=== PATIENT | female | born 1930 | race Caucasian/White ===

== ENCOUNTER 2017-04-25 11:40 | Inpatient (IN) ==
[2017-04-25] MEDS ORDERED: 0.9 % Sodium Chloride 1,000 ML IVC ONE (12:11)
[2017-04-25] MEDS ORDERED: Levofloxacin 750 MG/150 ML 750 MG/150 ML BAG IVPB ONE (12:11)
--- NOTE | 2017-04-25 12:59 | Emergency Department Note ---
Disposition Clinical Impression: Pneumonia Qualifiers: Pneumonia type: due to unspecified organism Laterality: right Lung location: lower lobe of lung Qualified Code(s): J18.1 - Lobar pneumonia, unspecified organism Urinary tract infection Qualifiers: Urinary tract infection type: site unspecified Hematuria presence: without hematuria Qualified Code(s): N39.0 - Urinary tract infection, site not specified Anemia Qualifiers: Anemia type: unspecified type Qualified Code(s): D64.9 - Anemia, unspecified Disposition: Admitted As Inpatient Condition: Good Time of Disposition: 17:01 General Adult HPI - General Chief complaint: ED Recheck/Abnormal Lab/Rx Stated complaint: Abnormal labs, abnormal chest xray Time Seen by Provider: 04/25/17 11:49 Source: patient, EMS Mode of arrival: EMS Limitations: age Nursing Notes Reviewed: Yes Vital Signs Reviewed: Yes - History of Present Illness HPI Narrative: Presents by EMS for evaluation of right lower lobe pneumonia. They are concerned about possible progression infection secondary to the patient's generalized malaise and weakness. No other concerns or issues noted at this time the patient denies chest pain shortness of breath headache vision changes nausea vomiting or diarrhea. Denies any palpitations or productive sputum. Onset (ago): day(s) Radiation: non-radiation Pain Scale: 6 Quality: aching Improves with: nothing Worsens with: nothing Associated symptoms: Reports: denies other symptoms Treatments Prior to Arrival: none - Related Data Home Medications Medication Instructions Recorded Confirmed Aspirin Enteric Coated [Aspirin EC] 81 mg PO QAM 04/25/17 04/25/17 Calcium Carbonate/Vitamin D3 1 each PO HS 04/25/17 04/25/17 [Calcium 500-Vit D3 200 Tablet] Carvedilol [Coreg] 6.25 mg PO BIDWM 04/25/17 04/25/17 HYDROcodone/Acet 5/325 mg [[place] 1 tab PO Q12H PRN 04/25/17 04/25/17 5-325 mg] Omeprazole [PriLOSEC] 20 mg PO QAM 04/25/17 04/25/17 Simvastatin [Zocor] 40 mg PO QAM 04/25/17 04/25/17 Venlafaxine XR (24 HR) [Effexor XR] 37.5 mg PO QAM 04/25/17 04/25/17 Warfarin [Coumadin] 4 mg PO 1700 04/25/17 04/25/17 hydrOXYzine pamoate [HydrOXYzine 25 mg PO DAILY PRN 04/25/17 04/25/17 Pamoate] Allergies Allergy/AdvReac Type Severity Reaction Status Date / Time sertraline [From Zoloft] AdvReac See Verified 04/25/17 16:35 Comments All systems ED: reviewed and negative except as stated. Review of Systems: As Per HPI Constitutional: Denies: fever, chills, weakness Cardiovascular: Denies: chest pain, palpitations, dyspnea on exertion, orthopnea , edema Respiratory: Reports: cough, dyspnea. Denies: wheezes, hemoptysis Gastrointestinal: Denies: abdominal pain, nausea, vomiting, diarrhea Genitourinary: Denies: dysuria, frequency Musculoskeletal: Denies: back pain, neck pain Neurological: Denies: headache Past Medical History - Past Medical History Attestation: Yes The following information was validated with the patient. Source: patient Medical history: Reports: atrial fibrillation, GERD, hyperlipidemia, hypertension Psychiatric history: Reports: depression - Social History Smoking Status: Never smoker Smokeless Tobacco Status: No Alcohol use: Reports: none Drug use: Reports: none Physical Exam - General Limitations: age General appearance: alert - Head Head exam: atraumatic, normocephalic, normal inspection - Neck Neck exam: Present: normal inspection, full ROM, trachea midline - Chest Chest inspection: Present: normal inspection, symmetric chest wall rise - Respiratory Respiratory exam: Absent: respiratory distress, wheezes, stridor, accessory muscle use - Cardiovascular Cardiovascular exam: Present: regular rate, normal rhythm, normal heart sounds - Abdominal Exam Abdominal exam: Present: soft, Non-Tender, normal bowel sounds. Absent: tenderness, distention, guarding, rebound, rigidity - Extremities Exam Extremities exam: Present: normal inspection, full ROM, normal capillary refill. Absent: tenderness - Back Exam Back exam: Present: normal inspection, full ROM. Absent: tenderness - Neurological Exam Neurological exam: Present: alert, oriented X3, CN II-XII intact, normal gait - Skin Skin exam: Present: warm, dry, intact, normal color Course Course Narrative: Patient seen and examined the time of arrival. See history of present illness. 86-year-old female presents to emergency room with complaints of generalized malaise, respiratory issues and diagnosis of pneumonia with abnormal labs from her nursing facility. Patient is currently in the facility for rehabilitation secondary to pain and generalized weakness. Family describes over the last several days persistently worsening weakness. They were concerned about possible pneumonia or other underlying etiology. Patient has had some increased work of breathing over the last several days. Patient does screening laboratory revealed completely including CBC chemistry and chest x-ray 2 views completed. EKG also collected as well as troponin and BNP. Urinalysis is pending at this time. Patient will most likely need admission for what is described as a possible pneumonia that is causing outpatient decompensation. Vital signs reviewed and are otherwise unremarkable at this point. - Reevaluation(s) Reevaluation #1: Patient found to have a lower lobe lingular pneumonia as well as urinary tract infection. Levaquin and Rocephin ordered this time. Patient otherwise has stable laboratory workup except for anemia with a hemoglobin of 8.5. Family says that her most recent hemoglobin was 10. Namenda. Patient has had dark colored stool and melena on the past and most likely is a trickling GI bleed. No other concerns or issues this time. Hemodynamic status stable. Information was conveyed onto the hospitalist for admission. No other concerns or issues at this time. Antibiotics started this point for pneumonia as well as urinary tract infection. Hemoglobin will be evaluated this patient needs endoscopy. Patient does have chronic paroxysmal atrial fibrillation is currently on Coumadin. Patient deferred rectal examination Time: 16:59 Vital Signs Temperature 98.2 F 04/25/17 11:43 Pulse Rate 99 04/25/17 11:43 Respiratory Rate 16 04/25/17 11:43 Blood Pressure 116/86 04/25/17 11:43 O2 Sat by Pulse Oximetry 92 04/25/17 11:43 Temperature 97.9 F 04/25/17 13:29 Pulse Rate 104 04/25/17 16:12 Respiratory Rate 16 04/25/17 16:12 Blood Pressure 100/69 04/25/17 16:12 O2 Sat by Pulse Oximetry 95 04/25/17 16:12 Oxygen Delivery Oxygen Delivery Room Air Medical Decision Making - MDM Narrative Medical decision making narrative: Ammonia, urinary tract infection, and anemia, upper GI bleed - Medical Records Medical records reviewed: Yes I reviewed the patient's medical records. - Lab Data Lab results reviewed: Yes I reviewed the patient's lab results. Result diagrams: 04/25/17 12:58 04/25/17 12:58 Lab Results 04/25/17 04/25/17 04/25/17 Range/Units 12:58 12:58 12:58 WBC 8.1 (4.3-11.1) K/mcL RBC 3.34 L (3.82-4.97) M/mcL Hgb 8.4 L (11.5-15.4) g/dL Hct 30.1 L (35.3-44.9) % MCV 90.1 (83.0-100.0) fL MCH 25.1 L (28.0-33.3) pg MCHC 27.9 L (31.6-35.5) g/dL RDW 18.6 H (11.5-14.5) % Plt Count 353 (140-400) K/mcL MPV 9.7 (9.4-12.4) fL Immature Gran % 0.4 (0-4) % Seg Neutrophils % 69.7 % Lymphocytes % 19.0 % Monocytes % 9.8 % Eosinophils % 0.7 % Basophils % 0.4 % Neutrophils # 5.7 (1.6-8.9) K/mcL Lymphocytes # 1.5 (0.6-4.6) K/mcL Monocytes # 0.8 (0.0-1.3) K/mcL Eosinophils # 0.1 (0.0-0.6) K/mcL Basophils # 0.0 (0.0-0.2) K/mcL Hypochromasia Present A (Not Present) Sodium 142 (136-145) mEq/L Potassium 5.1 H (3.5-4.5) mEq/L Chloride 95 L (98-109) mEq/L Carbon Dioxide 44 H* (19-29) mEq/L BUN 39 H (7-20) mg/dL Creatinine 0.77 (0.57-1.11) mg/dL Est GFR ( Amer) > 60 (> 60) Est GFR (Non-Af Amer) > 60 (> 60) BUN/Creatinine Ratio 51 H (6-26) Glucose 98 (70-99) mg/dL Calculated Osmolality 303 H (280-300) Calcium 9.7 (8.6-10.8) mg/dL Troponin I 0.02 (0-0.03) ng/mL Urine Color (Yellow) Urine Clarity (Clear) Urine pH (5.0-8.0) pH Units Ur Specific [place] (1.010-1.025) Urine Protein (Neg-Trace) mg/dL Urine Glucose (UA) (Normal) mg/dL Urine Ketones (Negative) mg/dL Urine Blood (Negative) Urine Nitrite (Negative) Urine Bilirubin (Negative) Urine Urobilinogen (Normal) mg/dL Ur Leukocyte Esterase (Negative) Urine Microscopic RBC (0-3) per hpf Urine Microscopic WBC (0-3) per hpf Ur Squamous Epith Cells (None-Few) per lpf Urine Bacteria (None-Few) per hpf Hyaline Casts (None-Few) per lpf Ur Culture Indicated? (NO) 04/25/17 Range/Units 15:50 WBC (4.3-11.1) K/mcL RBC (3.82-4.97) M/mcL Hgb (11.5-15.4) g/dL Hct (35.3-44.9) % MCV (83.0-100.0) fL MCH (28.0-33.3) pg MCHC (31.6-35.5) g/dL RDW (11.5-14.5) % Plt Count (140-400) K/mcL MPV (9.4-12.4) fL Immature Gran % (0-4) % Seg Neutrophils % % Lymphocytes % % Monocytes % % Eosinophils % % Basophils % % Neutrophils # (1.6-8.9) K/mcL Lymphocytes # (0.6-4.6) K/mcL Monocytes # (0.0-1.3) K/mcL Eosinophils # (0.0-0.6) K/mcL Basophils # (0.0-0.2) K/mcL Hypochromasia (Not Present) Sodium (136-145) mEq/L Potassium (3.5-4.5) mEq/L Chloride (98-109) mEq/L Carbon Dioxide (19-29) mEq/L BUN (7-20) mg/dL Creatinine (0.57-1.11) mg/dL Est GFR ( Amer) (> 60) Est GFR (Non-Af Amer) (> 60) BUN/Creatinine Ratio (6-26) Glucose (70-99) mg/dL Calculated Osmolality (280-300) Calcium (8.6-10.8) mg/dL Troponin I (0-0.03) ng/mL Urine Color Yellow (Yellow) Urine Clarity Clear (Clear) Urine pH 6.0 (5.0-8.0) pH Units Ur Specific [place] 1.029 H (1.010-1.025) Urine Protein Negative (Neg-Trace) mg/dL Urine Glucose (UA) Normal (Normal) mg/dL Urine Ketones Negative (Negative) mg/dL Urine Blood Negative (Negative) Urine Nitrite Positive A (Negative) Urine Bilirubin Negative (Negative) Urine Urobilinogen Normal (Normal) mg/dL Ur Leukocyte Esterase Small H (Negative) Urine Microscopic RBC 0-3 (0-3) per hpf Urine Microscopic WBC 5-15 H (0-3) per hpf Ur Squamous Epith Cells Many H (None-Few) per lpf Urine Bacteria Many H (None-Few) per hpf Hyaline Casts None Seen (None-Few) per lpf Ur Culture Indicated? YES A (NO) - Radiology Data Radiology results reviewed: Yes I reviewed the patient's radiology results. Chest x-ray stable except for right lower lobe pneumonia. - EKG Data EKG #1 EKG attestation: Yes I reviewed and interpreted this EKG. EKG results narrative: Patient found to have what appears to be A. fib with heart rate of 104. AR interval is unrecordable. QRS duration is 81. QTC 397. Intervals appear to be unremarkable this time. No other concerning findings on evaluation.
[2017-04-25 13:07] LABS: Basophils % 0.4 %; Eosinophils # 0.1 K/mcL (0.0-0.6); Eosinophils % 0.7 %; Hematocrit 30.1 % (35.3-44.9); Hemoglobin 8.4 g/dL (11.5-15.4); Immature Granulocytes % 0.4 % (0-4); Lymphocytes # 1.5 K/mcL (0.6-4.6); Mean Corpuscular HGB Conc 27.9 g/dL (31.6-35.5); Mean Corpuscular Hemoglobin 25.1 pg (28.0-33.3); Mean Corpuscular Volume 90.1 fL (83.0-100.0); Mean Platelet Volume 9.7 fL (9.4-12.4); Monocytes # 0.8 K/mcL (0.0-1.3); Monocytes % 9.8 %; Neutrophils # 5.7 K/mcL (1.6-8.9); Platelet Count 353 K/mcL (140-400); Red Blood Count 3.34 M/mcL (3.82-4.97); Red Cell Distribution Width 18.6 % (11.5-14.5); Segmented Neutrophils % 69.7 %
[2017-04-25 13:22] LABS: BUN/Creatinine Ratio 51 (6-26); Blood Urea Nitrogen 39 mg/dL (7-20); Calcium 9.7 mg/dL (8.6-10.8); Chloride 95 mEq/L (98-109); Glucose 98 mg/dL (70-99); Osmolality,Calculated 303 (280-300); Potassium 5.1 mEq/L (3.5-4.5); Sodium 142 mEq/L (136-145); eGFR For African Americans > 60 (> 60); eGFR For Non-African Americans > 60 (> 60)
[2017-04-25 13:34] LABS: Carbon Dioxide 44 mEq/L (19-29)
[2017-04-25 13:51] LABS: Hypochromasia Present (Not Present)
[2017-04-25 16:19] LABS: Bilirubin,Urine Negative (Negative); Blood,Urine Negative (Negative); Clarity,Urine Clear (Clear); Color,Urine Yellow (Yellow); Glucose,Urine (UA) Normal (Normal); Ketones,Urine Negative (Negative); Leukocyte Esterase,Urine Small (Negative); Nitrite,Urine Positive (Negative); Protein,Urine Negative (Neg-Trace); Specific Gravity,Urine 1.029 (1.010-1.025); Urobilinogen,Urine Normal (Normal)
[2017-04-25 16:21] LABS: Bacteria,Urine Many per hpf (None-Few); Hyaline Casts,Urine None Seen per lpf (None-Few); RBC,Urine 0-3 per hpf (0-3); Squamous Epithelial Cell,Urine Many per lpf (None-Few)
[2017-04-25 17:13] LABS: Activated Partial Thrombo Time 51.3 Seconds (26.0-36.0)
[2017-04-25 17:22] LABS: INR 8.8; Prothrombin Time 99.6 Seconds (9.4-12.1)
[2017-04-25] MEDS ORDERED: *HR* HYDROcodone/Acet 5/325 mg TABLET PO ONE (19:20)
[2017-04-25] MEDS ORDERED: cefTRIAXone 1,000 MG in Water for inj. (sterile) 10 ML IVP ONE (20:26)
[2017-04-25] MEDS ORDERED: *HR* Phytonadione 5 MG TABLET PO ONE (22:48)
[2017-04-25] MEDS ORDERED: Naloxone 0.4 MG/ML INJ IVP PRN (22:54)
[2017-04-25] MEDS ORDERED: Acetaminophen 325 MG TABLET PO PRN (22:54)
[2017-04-25] MEDS ORDERED: Ondansetron 4 MG/2 ML VIAL IVP PRN (22:54)
[2017-04-25] MEDS ORDERED: 0.9 % Sodium Chloride 1,000 ML IVC SCH (23:00)
[2017-04-25] MEDS ORDERED: Albuterol 2.5 MG/3 ML NEBULIZER IH PRN (23:01)
--- NOTE | 2017-04-25 23:07 | Internal Med History&Physical ---
Date of Encounter: 04/25/17 Time of Encounter: 21:30 Assessment and Plan (1) Pneumonia Current visit: Yes Status: Acute Patient has been experiencing general malaise and dyspnea on exertion as well as requiring oxygen. Chest x-ray with possible consolidation in the lingula. Blood cultures have been obtained continue with Rocephin and Levaquin-patient is a resident at [facility]-will treat for HCAP Qualifiers: Pneumonia type: due to unspecified organism Laterality: right Lung location: lower lobe of lung Qualified Code(s): J18.1 - Lobar pneumonia, unspecified organism (2) Urinary tract infection Current visit: Yes Status: Acute 1 has been experiencing general malaise urinalysis indicative of a UTI. We will continue with Rocephin pending urinary cultures Qualifiers: Urinary tract infection type: site unspecified Hematuria presence: without hematuria Qualified Code(s): N39.0 - Urinary tract infection, site not specified (3) Atrial fibrillation Current visit: Yes Status: Acute Presently rate controlled we will continue with Coreg will hold Coumadin for now due to supratherapeutic INR Qualifiers: Atrial fibrillation type: chronic Qualified Code(s): I48.2 - Chronic atrial fibrillation (4) Supratherapeutic INR Current visit: Yes Status: Acute Patient is on Coumadin for atrial fibrillation. INR 8.8. We will hold Coumadin for now and we will give vitamin K 5 mg orally. Recheck INR in a.m. (5) Anemia Current visit: Yes Status: Acute 1 patient has history of anemia since she normally is round and hemoglobin today. 4. She is on Coumadin INR is 8.8. Obtain occult stool. Monitor H&H Qualifiers: Anemia type: unspecified type Qualified Code(s): D64.9 - Anemia, unspecified (6) DVT prophylaxis Current visit: Yes Status: Acute 1 patient is on Coumadin Internal Medicine - H&P: HPI Chief complaint: general malaise Admitted From: Emergency Dept Plans for Post Hospital Care: [facility] History of present illness: Ms. Lobo is a 86 year old female past medical history of atrial fibrillation on Coumadin GERD hyperlipidemia hypertension. Patient is a resident at an extended care facility. Over the past several days patient has been experiencing worsening weakness as well as shortness of breath on exertion. She denies any fevers chills nausea vomiting or diarrhea. She has not been experiencing a cough or sputum production Lab work was ordered at the [facility]-concerns for possible pneumonia and patient was sent to ER for evaluation. Chest x-ray suggests possible consolidation in the lingula. Urinalysis was obtained which did show UTI. Lab work was concerning with a INR of 8.8, hemoglobin is 8.4. Daughter reports hemoglobin normally around 10. Denies any melena hematochezia, hematemesis. Patient was given IV antibiotics and has been admitted for further workup and evaluation. Presently patient is on. B respiratory distress denies any chest pain or shortness of breath. She is hemodynamically stable this time. I did review this case with Dr. Varghese who agrees with plan Past Med Surg Social Fam HX - Past Medical History Medical history: atrial fibrillation, GERD, hyperlipidemia, hypertension Psychiatric history: depression - Social History Smoking Status: Never smoker Smokeless Tobacco Status: No Alcohol use: none Drug use: none - Additional Family History Additional family history: Reviewed and noncontributory Internal Medicine - H&P: Meds Aspirin Enteric Coated [Aspirin EC] 81 mg PO QAM 04/25/17 [History] Calcium Carbonate/Vitamin D3 [Calcium 500-Vit D3 200 Tablet] 1 each PO HS [History] Carvedilol [Coreg] 6.25 mg PO BIDWM 04/25/17 [History] HYDROcodone/Acet 5/325 mg [[place] 5-325 mg] 1 tab PO Q12H PRN 04/25/17 [History] Omeprazole [PriLOSEC] 20 mg PO QAM 04/25/17 [History] Simvastatin [Zocor] 40 mg PO QAM 04/25/17 [History] Venlafaxine XR (24 HR) [Effexor XR] 37.5 mg PO QAM 04/25/17 [History] Warfarin [Coumadin] 4 mg PO 1700 04/25/17 [History] hydrOXYzine pamoate [HydrOXYzine Pamoate] 25 mg PO DAILY PRN 04/25/17 [History] 3 Allergy/AdvReac Type Severity Reaction Status Date / Time sertraline [From Zoloft] AdvReac See Verified 04/25/17 16:35 Comments All Systems PM: A 10-system review of systems was performed and is negative for pertinent findings except as documented above in the HPI. - Constitutional Constitutional: anorexia, weakness, no chills, no fever(s), no night sweats - EENT Eyes: no change in vision, no discharge, no pain, no photophobia Nose, mouth and throat: no dysphagia, no nasal discharge, no neck pain, no sore throat - Cardiovascular Cardiovascular ROS IM: no chest pain, no diaphoresis, no dyspnea, no lightheadedness, no palpitations, no syncope - Respiratory Respiratory: dyspnea on exertion, no cough, no dyspnea, no wheezing, no excessive phlegm production - Gastrointestinal Gastrointestinal: no abdominal pain, no diarrhea, no hematemesis, no hematochezia, no melena, no nausea, no vomiting - Genitourinary Genitourinary: no change in urinary stream, no dysuria, no flank pain, no hematuria - Musculoskeletal Musculoskeletal ROS IM: no numbness, no tingling - Integumentary Integumentary IM: no rash, no unusual bruising - Neurological Neurological ROS: no confusion, no convulsions, no focal weakness, no numbness, no tingling, no tremor(s) - Hematologic/Lymphatic Hematologic/Lymphatic: no easy bruising - Constitutional Vitals: Temp Pulse Resp BP Pulse Ox 98.8 F 98 17 109/86 96 04/25/17 22:34 04/25/17 22:34 04/25/17 22:34 04/25/17 22:34 04/25/17 22:34 General appearance: Present: A&O X 3, answers questions appropriately - Head Head exam: Present: atraumatic, normocephalic - Eye Eye exam: Present: PERRL, conjuntiva pink, sclera anicteric Pupils: Present: PERRL - Neck Neck exam general surgery: Present: supple, trachea midline. Absent: lymphadenopathy - Respiratory Respiratory exam: Present: decreased breath sounds, CTAB. Absent: accessory muscle use, rales, rhonchi, wheezes - Cardiovascular Cardiovascular exam: Present: RRR, +S1, +S2. Absent: diastolic murmur, gallop, rubs, systolic murmur - GI/Abdominal GI/Abdominal exam: Present: normal bowel sounds, soft, no peritoneal signs. Absent: distended, tenderness - Extremities Exam Extremities exam: Present: warm, radial pulses palpable and symmetrical. Absent : calf tenderness, cyanotic, pedal edema - Neurological Exam Neurological exam: Present: CN II-XII intact, oriented X3, no focal deficits. Absent: pronater drift, facial droop, speech deficit - Skin Skin exam: Present: dry, intact Internal Med - H&P Results - Labs CBC & Chem 7: 04/25/17 12:58 04/25/17 12:58 - EKG Data EKG comments: 04/25/17 23:14 Atrial fibrillation - Impressions ITS Impressions Head CT 04/25/17 17:27 IMPRESSION: 1. No acute intracranial abnormality. 2. Diffuse parenchymal volume loss with moderate chronic white matter microvascular ischemic changes. D/ / Smooth Vázquez MD / Smooth Vázquez MD Interpreting Provider: Smooth Vázquez MD - Diagnostic Studies Chest x-ray Additional comments: Chest X-Ray 04/25/17 12:11 IMPRESSION: Possible consolidation in the lingula. Radiographic follow up suggested in 6-8 weeks. Hiatal hernia. D/ / 04/25/2017 12:42:37 Maxime Cristina MD / earnold Interpreting Provider: Maxime Cristina MD Head CT 04/25/17 17:27
[2017-04-26] MEDS ORDERED: Vancomycin 1,500 MG in D5% in Water 250 ML IVPB ONE (04:00)
[2017-04-26] MEDS ORDERED: Vancomycin 1,500 MG in D5% in Water 250 ML IVPB SCH (04:00)
[2017-04-26 05:24] LABS: Hematocrit 28.5 % (35.3-44.9); Hemoglobin 7.9 g/dL (11.5-15.4); Mean Corpuscular HGB Conc 27.7 g/dL (31.6-35.5); Mean Corpuscular Hemoglobin 25.2 pg (28.0-33.3); Red Cell Distribution Width 18.3 % (11.5-14.5)
[2017-04-26 05:26] LABS: Basophils % 0.3 %; Eosinophils # 0.1 K/mcL (0.0-0.6); Immature Granulocytes % 0.5 % (0-4); Lymphocytes # 1.9 K/mcL (0.6-4.6); Lymphocytes % 23.6 %; Mean Corpuscular Volume 90.8 fL (83.0-100.0); Mean Platelet Volume 9.6 fL (9.4-12.4); Monocytes # 0.9 K/mcL (0.0-1.3); Platelet Count 336 K/mcL (140-400); Red Blood Count 3.14 M/mcL (3.82-4.97); Segmented Neutrophils % 63.6 %
[2017-04-26 05:39] LABS: BUN/Creatinine Ratio 49 (6-26); Blood Urea Nitrogen 35 mg/dL (7-20); Calcium 8.9 mg/dL (8.6-10.8); Chloride 98 mEq/L (98-109); Glucose 122 mg/dL (70-99); Magnesium 2.4 mg/dL (1.6-2.6); Osmolality,Calculated 301 (280-300); Potassium 4.8 mEq/L (3.5-4.5); Sodium 141 mEq/L (136-145); eGFR For African Americans > 60 (> 60); eGFR For Non-African Americans > 60 (> 60)
[2017-04-26 05:43] LABS: INR 8.8
[2017-04-26 05:48] LABS: Carbon Dioxide 40 mEq/L (19-29)
[2017-04-26] MEDS ORDERED: *HR* Phytonadione 5 MG TABLET PO ONE (05:57)
[2017-04-26 06:00] LABS: Anisocytosis 1+ (Not Present); Hypochromasia Present (Not Present); Platelet Estimate Normal (Normal); Stomatocytes 1+ (Not Present)
[2017-04-26] MEDS ORDERED: Piperacillin/Tazobactam 3.375 GM in D5% in Water 50 ML IVPB SCH (08:00)
--- NOTE | 2017-04-26 08:31 | Internal Med Progress Note ---
<Juan Mercedes - Last Filed: 04/26/17 14:02> Date of Encounter: 04/26/17 Time of Encounter: 08:30 - Assessment and plan (1) Pneumonia Current Visit: Yes Status: Acute Assessment and plan: Patient is a resident at [facility] Chest x-ray with possible consolidation in the lingula. Blood and sputum cultures pending HAP coverage with IV vancomycin, Zosyn and Levaquin De-escalte antibiotics based on culture results Continue incentive spirometry, Mucinex, and Duonebs Qualifiers: Pneumonia type: due to unspecified organism Laterality: right Lung location: lower lobe of lung Qualified Code(s): J18.1 - Lobar pneumonia, unspecified organism (2) Diastolic CHF, acute on chronic Current Visit: Yes Status: Acute Assessment and plan: Elevated BNP 186, 2+ edema bilateral upper extremities, CXR with consolidation TTE 04/18/17 revealed 40-45% EF with global hypokinesis Continue Coreg Monitor I&Os Monitor for signs of fluid overload (3) Chronic hypoxemic respiratory failure Current Visit: Yes Status: Acute Assessment and plan: Continue 3 Liters supplemental home O2 at baseline requirement (4) Urinary tract infection Current Visit: Yes Status: Acute Assessment and plan: Asymptomatic De-escalte antibiotics based on culture results Urine culture pending Qualifiers: Urinary tract infection type: site unspecified Hematuria presence: without hematuria Qualified Code(s): N39.0 - Urinary tract infection, site not specified (5) Atrial fibrillation Current Visit: Yes Status: Acute Assessment and plan: Rate controlled Increased Coreg dose to 12.5 PO BID Hold Coumadin for now due to supratherapeutic INR Qualifiers: Atrial fibrillation type: chronic Qualified Code(s): I48.2 - Chronic atrial fibrillation (6) Supratherapeutic INR Current Visit: Yes Status: Acute Assessment and plan: INR 8.8 --> 8.8 S/p Vitamin K 10mg No signs of bleeding Hold Coumadin Continue to monitor (7) Anemia Current Visit: Yes Status: Acute Assessment and plan: History of anemia and prior EGD Obtain occult stool. Monitor H&H Qualifiers: Anemia type: unspecified type Qualified Code(s): D64.9 - Anemia, unspecified (8) Morbid obesity with BMI of 45.0-49.9, adult Current Visit: Yes Status: Acute Assessment and plan: Discussed diet modification and exercise (9) DVT prophylaxis Current Visit: Yes Status: Acute Assessment and plan: Ambulation, SCDs Hold Coumdin - Subjective Interval history: Patient seen and examined. Patient denies any acute complaints overnight other than sputum production and ecchymosis at right hand venipuncture site. Patient denies fever, chills, CP, SOB, N/V/D, or leg edema. Patient encouraged to ambulate with PT/OT. - Constitutional Vitals: Temp Pulse Resp BP Pulse Ox 97.6 F 94 16 124/93 93 04/26/17 06:41 04/26/17 06:41 04/26/17 06:41 04/26/17 06:41 04/26/17 06:41 General appearance: Present: cooperative, A&O X 3, morbidly obese, pleasant, no acute distress, answers questions appropriately - Head Head exam: Present: atraumatic, normal inspection, normocephalic - Eye Eye exam: Present: EOMI, conjuntiva pink, sclera anicteric - ENT ENT exam: Present: mucous membranes moist, normal oropharynx - Neck Neck exam general surgery: Present: normal inspection, supple - Respiratory Respiratory exam: Present: decreased breath sounds (bibasilar). Absent: accessory muscle use, respiratory distress - Cardiovascular Cardiovascular exam: Present: irregular rhythm, +S1, +S2 - GI/Abdominal GI/Abdominal exam: Present: distended, normal bowel sounds, soft. Absent: guarding, tenderness - Additional comments: no back - Extremities Exam Extremities exam: Present: warm. Absent: pedal edema Additional comments: 2+ edema bilateral upper extremities - Back Exam Back exam: Present: normal inspection. Absent: paraspinal tenderness, tenderness - Neurological Exam Neurological exam: Present: alert, oriented X3, no focal deficits. Absent: speech deficit - Psychiatric Psychiatric exam: Present: normal affect, normal mood - Skin Skin exam: Present: dry, petechiae (right nterior johnson), warm Additional comments: ecchymosis at right hand venipuncture site Internal Medicine: Result - Labs CBC & Chem 7: 04/26/17 05:02 04/26/17 05:02 Labs: Short CBC 04/26/17 Range/Units 05:02 WBC 7.9 (4.3-11.1) K/mcL Hgb 7.9 L (11.5-15.4) g/dL Hct 28.5 L (35.3-44.9) % Plt Count 336 (140-400) K/mcL Neutrophils # 5.0 (1.6-8.9) K/mcL [facility] 04/26/17 05:02 Sodium 141 Potassium 4.8 H Chloride 98 Carbon Dioxide 40 H* BUN 35 H Creatinine 0.71 Glucose 122 H Calcium 8.9 - ABG Interpretation ABG results: PT/INR, D-dimer PT 99.0 Seconds (9.4-12.1) H* 04/26/17 05:02 Consult Discharge Plan - Plan Referrals: NONE,PCP [Primary Care Provider] - <Monik Bellamy - Last Filed: 04/26/17 16:35> Date of Encounter: 04/26/17 - Constitutional Vitals: Temp Pulse Resp BP Pulse Ox 98.4 F 98 14 127/78 96 04/26/17 14:45 04/26/17 14:45 04/26/17 16:25 04/26/17 14:45 04/26/17 16:25 Internal Medicine: Result - Labs CBC & Chem 7: 04/26/17 05:02 04/26/17 05:02 Labs: Short CBC 04/26/17 Range/Units 05:02 WBC 7.9 (4.3-11.1) K/mcL Hgb 7.9 L (11.5-15.4) g/dL Hct 28.5 L (35.3-44.9) % Plt Count 336 (140-400) K/mcL Neutrophils # 5.0 (1.6-8.9) K/mcL [facility] 04/26/17 05:02 Sodium 141 Potassium 4.8 H Chloride 98 Carbon Dioxide 40 H* BUN 35 H Creatinine 0.71 Glucose 122 H Calcium 8.9 - ABG Interpretation ABG results: PT/INR, D-dimer PT 99.0 Seconds (9.4-12.1) H* 04/26/17 05:02 - Attending Attestation I have seen and examined the patient independently. I have discussed with resident physician Dr Mercedes regarding the management plan. Agree with the documentation. Patient has increased shortness of breath from baseline. Chest x-ray suggests pneumonia. Will continue antibiotic and supportive treatment for healthcare associated pneumonia. Follow-up culture results. Patient has supratherapeutic INR, no sense of active bleeding at this point. Vitamin K by mouth has been given. Closely follow-up PT/INR.
[2017-04-26] MEDS ORDERED: cefTRIAXone 1,000 MG in Water for inj. (sterile) 10 ML IVP SCH (09:00)
[2017-04-26] MEDS: Levofloxacin 750 MG/150 ML 750 MG/150 ML BAG IVPB SCH (09:05)
[2017-04-26] MEDS: Venlafaxine XR (24 HR) 37.5 MG CAP.ER.24H PO SCH (09:05)
[2017-04-26] MEDS ORDERED: Aminoglycoside Consult 1 EACH MC ONE (10:12)
[2017-04-26] MEDS ORDERED: hydrOXYzine pamoate 25 MG CAPSULE PO PRN (14:12)
[2017-04-26] MEDS: *HR* HYDROcodone/Acet 5/325 mg TABLET PO PRN ×2 (14:35→19:08)
[2017-04-26] MEDS ORDERED: Vancomycin 1,000 MG in D5% in Water 250 ML IVPB SCH (16:00)
[2017-04-26] MEDS: Ipratropium/Albuterol Neb 3 ML IH SCH ×2 (16:25→22:43)
--- NOTE | 2017-04-26 19:05 | Electrocardiograph Report ---
[place] [id number] Test Date: 2017-04-25 Pat Name: Mirna Lobo Department: 103 Room: [facility] Gender: Wilton Weaver: CURTIS : 1930 Requested By: Suhas Carrasco Order Number: [id number] Reading MD: Chicho Bautista MD Measurements Intervals [place] Rate: 104 P: AK: 0 QRS: -3 QRSD: 81 T: 30 QT: 319 QTc: 379 Interpretive Statements ATRIAL FIBRILLATION WITH RAPID VENTRICULAR RESPONSE Electronically Signed On 04-26-2017 19:03:32 EST by Chicho Bautista MD
[2017-04-26] MEDS: GuaiFENesin/Dextromethorphan TABLET PO SCH ×2 (19:08→22:10)
[2017-04-26] MEDS ORDERED: CALCIUM/VITAMIN D PO SCH (21:00)
[2017-04-26] MEDS: Cholecalciferol (D-3) 1,000 UNIT TABLET PO SCH (22:10)
[2017-04-26] MEDS: Sennosides/Docusate Sodium TABLET PO SCH (22:10)
[2017-04-26] MEDS: Piperacillin/Tazobactam 3.375 GM in D5% in Water 50 ML IVPB SCH (23:11)
[2017-04-27] MEDS: Ipratropium/Albuterol Neb 3 ML IH SCH ×4 (04:22→22:21)
[2017-04-27] MEDS ORDERED: Vancomycin 1,500 MG in D5% in Water 250 ML IVPB SCH (05:00)
[2017-04-27 05:57] LABS: Hematocrit 25.7 % (35.3-44.9); Hemoglobin 7.1 g/dL (11.5-15.4); Immature Platelets 2.3 % (1.1-6.1); Mean Corpuscular HGB Conc 27.6 g/dL (31.6-35.5); Mean Corpuscular Hemoglobin 25.2 pg (28.0-33.3); Mean Corpuscular Volume 91.1 fL (83.0-100.0); Mean Platelet Volume 9.5 fL (9.4-12.4); Red Blood Count 2.82 M/mcL (3.82-4.97); Red Cell Distribution Width 18.1 % (11.5-14.5)
[2017-04-27 06:00] LABS: INR 1.4; Prothrombin Time 15.6 Seconds (9.4-12.1)
[2017-04-27 06:03] LABS: Activated Partial Thrombo Time 24.9 Seconds (26.0-36.0)
[2017-04-27 06:10] LABS: Sodium 140 mEq/L (136-145)
[2017-04-27 06:11] LABS: BUN/Creatinine Ratio 44 (6-26); Blood Urea Nitrogen 32 mg/dL (7-20); Calcium 9.1 mg/dL (8.6-10.8); Carbon Dioxide 36 mEq/L (19-29); Chloride 98 mEq/L (98-109); Glucose 119 mg/dL (70-99); Osmolality,Calculated 298 (280-300); Potassium 4.8 mEq/L (3.5-4.5); eGFR For African Americans > 60 (> 60); eGFR For Non-African Americans > 60 (> 60)
[2017-04-27] MEDS: Piperacillin/Tazobactam 3.375 GM in D5% in Water 50 ML IVPB SCH (06:41)
--- NOTE | 2017-04-27 07:23 | Internal Med Progress Note ---
<Juan Mercedes - Last Filed: 04/27/17 13:58> Date of Encounter: 04/27/17 Time of Encounter: 07:21 - Assessment and plan (1) Pneumonia Current Visit: Yes Status: Acute Assessment and plan: Patient from [facility] rehab facility after recent hospitalization Chest x-ray with possible consolidation in the lingula. Blood and sputum cultures pending HAP coverage with IV vancomycin, Zosyn and Levaquin (Day 2 of 7) De-escalte antibiotics, will need to complete 7 days total of Levaquin Continue incentive spirometry, Mucinex, and Duonebs Qualifiers: Pneumonia type: due to unspecified organism Laterality: right Lung location: lower lobe of lung Qualified Code(s): J18.1 - Lobar pneumonia, unspecified organism (2) Diastolic CHF, acute on chronic Current Visit: Yes Status: Acute Assessment and plan: Elevated BNP 186, 2+ edema bilateral upper extremities, CXR with consolidation TTE 04/18/17 revealed 40-45% EF with global hypokinesis Continue Coreg Monitor I&Os Monitor for signs of fluid overload (3) Chronic hypoxemic respiratory failure Current Visit: Yes Status: Acute Assessment and plan: Continue 3 Liters supplemental home O2 at baseline requirement (4) Urinary tract infection Current Visit: Yes Status: Acute Assessment and plan: Asymptomatic Urine culture positive for pansensitive E. coli De-escalte antibiotics, continue Levaquin Qualifiers: Urinary tract infection type: site unspecified Hematuria presence: without hematuria Qualified Code(s): N39.0 - Urinary tract infection, site not specified (5) Atrial fibrillation Current Visit: Yes Status: Acute Assessment and plan: Rate controlled Coreg 12.5 PO BID Resume Coumadin Qualifiers: Atrial fibrillation type: chronic Qualified Code(s): I48.2 - Chronic atrial fibrillation (6) Supratherapeutic INR Current Visit: Yes Status: Resolved Assessment and plan: INR 8.8 --> 8.8 -- 1.4 S/p Vitamin K 10mg No signs of bleeding Resume Coumadin Continue to monitor (7) Anemia Current Visit: Yes Status: Acute Assessment and plan: History of anemia and prior EGD Obtain occult stool. Monitor H&H Anemia work up pending Qualifiers: Anemia type: unspecified type Qualified Code(s): D64.9 - Anemia, unspecified (8) Morbid obesity with BMI of 45.0-49.9, adult Current Visit: Yes Status: Acute Assessment and plan: Discussed diet modification and exercise (9) DVT prophylaxis Current Visit: Yes Status: Acute Assessment and plan: Ambulation, SCDs Resume Coumdin - Subjective Interval history: Patient seen and examined. Patient denies any acute complaints overnight. Nursing reports limited IV access and need for powerglide. Her urine culture is positive for E. coli. Patient denies fever, chills, CP, SOB, N/V/D, or leg edema. Patient encouraged to ambulate with PT/OT. Case discussed with daughter at bedside and all questions were answered. - Constitutional Vitals: Temp Pulse Resp BP Pulse Ox 98.2 F 65 17 108/71 97 04/27/17 05:39 04/27/17 05:39 04/27/17 05:39 04/27/17 05:39 04/27/17 05:39 General appearance: Present: cooperative, A&O X 3, morbidly obese, pleasant, no acute distress, answers questions appropriately - Head Head exam: Present: atraumatic, normal inspection, normocephalic - Eye Eye exam: Present: EOMI, conjuntiva pink, sclera anicteric - ENT ENT exam: Present: mucous membranes moist, normal oropharynx - Neck Neck exam general surgery: Present: normal inspection, supple - Respiratory Respiratory exam: Present: decreased breath sounds (bibasilar) - Cardiovascular Cardiovascular exam: Present: irregular rhythm, +S1, +S2 - GI/Abdominal GI/Abdominal exam: Present: normal bowel sounds, soft. Absent: guarding, tenderness - Additional comments: no back - Extremities Exam Extremities exam: Present: normal inspection. Absent: pedal edema - Back Exam Back exam: Present: normal inspection. Absent: paraspinal tenderness, tenderness - Neurological Exam Neurological exam: Present: alert, oriented X3, no focal deficits. Absent: speech deficit - Psychiatric Psychiatric exam: Present: normal affect, normal mood - Skin Skin exam: Present: dry, normal color, warm Internal Medicine: Result - Labs CBC & Chem 7: 04/27/17 05:47 04/27/17 05:47 Labs: Short CBC 04/27/17 Range/Units 05:47 WBC 7.1 (4.3-11.1) K/mcL Hgb 7.1 L (11.5-15.4) g/dL Hct 25.7 L (35.3-44.9) % Plt Count 333 (140-400) K/mcL [facility] 04/27/17 05:47 Sodium 140 Potassium 4.8 H Chloride 98 Carbon Dioxide 36 H BUN 32 H Creatinine 0.72 Glucose 119 H Calcium 9.1 - ABG Interpretation ABG results: PT/INR, D-dimer PT 15.6 Seconds (9.4-12.1) H D 04/27/17 05:47 - Pulse Oximetry Interpretation Digit-Finger Pulse Oximetry Readin (on baseline 3L O2 via NC) Actions taken: none - VTE Documentation of Mechanical Device: Intermittent pneumatic compression device Consult Discharge Plan - Plan Referrals: NONE,PCP [Primary Care Provider] - <Monik Bellamy - Last Filed: 04/27/17 17:34> Date of Encounter: 04/27/17 - Constitutional Vitals: Temp Pulse Resp BP Pulse Ox 97.8 F 86 14 110/74 100 04/27/17 16:06 04/27/17 16:06 04/27/17 16:06 04/27/17 16:06 04/27/17 16:06 Internal Medicine: Result - Labs CBC & Chem 7: 04/27/17 05:47 04/27/17 05:47 Labs: Short CBC 04/27/17 Range/Units 05:47 WBC 7.1 (4.3-11.1) K/mcL Hgb 7.1 L (11.5-15.4) g/dL Hct 25.7 L (35.3-44.9) % Plt Count 333 (140-400) K/mcL [facility] 04/27/17 05:47 Sodium 140 Potassium 4.8 H Chloride 98 Carbon Dioxide 36 H BUN 32 H Creatinine 0.72 Glucose 119 H Calcium 9.1 - ABG Interpretation ABG results: PT/INR, D-dimer PT 15.6 Seconds (9.4-12.1) H D 04/27/17 05:47 - Attending Attestation I have seen and examined patient independently. I have discussed with the resident physician Dr. Mercedes regarding the management plan. Agree with the documentation. Improved the shortness of breath. Deescalate antibiotic to levaquin. INR get down. Hemoglobin 7.1 (baseline around 8.0), will check anemia workup. Continue close monitor patient
[2017-04-27] MEDS: Aspirin Enteric Coated 81 MG Tablet PO SCH (09:42)
[2017-04-27] MEDS: GuaiFENesin/Dextromethorphan TABLET PO SCH ×2 (09:42→21:44)
[2017-04-27] MEDS: Sennosides/Docusate Sodium TABLET PO SCH ×2 (09:42→21:43)
[2017-04-27] MEDS: Venlafaxine XR (24 HR) 37.5 MG CAP.ER.24H PO SCH (09:42)
[2017-04-27] MEDS: Levofloxacin 750 MG/150 ML 750 MG/150 ML BAG IVPB SCH (09:42)
[2017-04-27] MEDS: *HR* HYDROcodone/Acet 5/325 mg TABLET PO PRN ×2 (14:31→18:41)
[2017-04-27] MEDS ORDERED: *HR* Warfarin 4 MG TABLET PO ONE (18:00)
[2017-04-27] MEDS ORDERED: Warfarin perPT PO PRN (18:00)
[2017-04-27] MEDS: Cholecalciferol (D-3) 1,000 UNIT TABLET PO SCH (21:44)
[2017-04-28] MEDS: Ipratropium/Albuterol Neb 3 ML IH SCH ×4 (03:41→21:14)
[2017-04-28 05:59] LABS: Hemoglobin 7.5 g/dL (11.5-15.4)
[2017-04-28 06:00] LABS: Hematocrit 27.2 % (35.3-44.9); Mean Corpuscular HGB Conc 27.6 g/dL (31.6-35.5); Mean Corpuscular Hemoglobin 24.8 pg (28.0-33.3); Mean Corpuscular Volume 90.1 fL (83.0-100.0); Mean Platelet Volume 9.4 fL (9.4-12.4); Platelet Count 333 K/mcL (140-400); Red Blood Count 3.02 M/mcL (3.82-4.97)
[2017-04-28 06:03] LABS: INR 1.5; Prothrombin Time 16.7 Seconds (9.4-12.1)
[2017-04-28 06:13] LABS: BUN/Creatinine Ratio 42 (6-26); Blood Urea Nitrogen 30 mg/dL (7-20); Calcium 9.6 mg/dL (8.6-10.8); Chloride 96 mEq/L (98-109); Glucose 118 mg/dL (70-99); Osmolality,Calculated 297 (280-300); Potassium 4.5 mEq/L (3.5-4.5); Sodium 140 mEq/L (136-145); eGFR For African Americans > 60 (> 60); eGFR For Non-African Americans > 60 (> 60)
[2017-04-28 06:14] LABS: % Iron Saturation 8 % (15-50); Iron 30 mcg/dL (50-170); Transferrin 266 mg/dL (180-382)
[2017-04-28 06:15] LABS: Carbon Dioxide 40 mEq/L (19-29)
[2017-04-28 06:34] LABS: Ferritin 38 ng/ml (5-204)
[2017-04-28 06:49] LABS: Folate 14.5 ng/mL (7.0-31.4)
--- NOTE | 2017-04-28 07:17 | Discharge Summary ---
Date of Encounter: 04/28/17 Time of Encounter: 07:17 - Discharge Diagnosis (1) Pneumonia Priority: Primary Status: Acute Qualifiers: Pneumonia type: due to unspecified organism Laterality: right Lung location: lower lobe of lung Qualified Code(s): J18.1 - Lobar pneumonia, unspecified organism (2) Diastolic CHF, acute on chronic Status: Acute (3) Chronic hypoxemic respiratory failure Status: Acute (4) Urinary tract infection Status: Acute Qualifiers: Urinary tract infection type: site unspecified Hematuria presence: without hematuria Qualified Code(s): N39.0 - Urinary tract infection, site not specified (5) Atrial fibrillation Status: Acute Qualifiers: Atrial fibrillation type: chronic Qualified Code(s): I48.2 - Chronic atrial fibrillation (6) Supratherapeutic INR Status: Resolved (7) Anemia Status: Acute Qualifiers: Anemia type: unspecified type Qualified Code(s): D64.9 - Anemia, unspecified (8) Morbid obesity with BMI of 45.0-49.9, adult Status: Acute (9) DVT prophylaxis Status: Acute - Discharge Medications Home Medications: Aspirin Enteric Coated [Aspirin EC] 81 mg PO QAM 04/25/17 [History] Calcium Carbonate/Vitamin D3 [Calcium 500-Vit D3 200 Tablet] 1 each PO HS [History] Carvedilol [Coreg] 6.25 mg PO BIDWM 04/25/17 [History] HYDROcodone/Acet 5/325 mg [[place] 5-325 mg] 1 tab PO Q12H PRN 04/25/17 [History] Omeprazole [PriLOSEC] 20 mg PO QAM 04/25/17 [History] Simvastatin [Zocor] 40 mg PO QAM 04/25/17 [History] Venlafaxine XR (24 HR) [Effexor XR] 37.5 mg PO QAM 04/25/17 [History] Warfarin [Coumadin] 4 mg PO 1700 04/25/17 [History] hydrOXYzine pamoate [HydrOXYzine Pamoate] 25 mg PO DAILY PRN 04/25/17 [History] Allergies/Adverse Reactions: 3 Allergy/AdvReac Type Severity Reaction Status Date / Time sertraline [From Zoloft] AdvReac See Verified 04/25/17 16:35 Comments Date of admission: 04/25/17 23:24 Primary care physician: PCP NONE Consults: 04/26/17 10:53 Consult to Physical Therapy [CONS] Routine Comment: Evaluate, develop and implement POC Reason for Consult: weakness return to [facility] OT [Consult to Occupational Therapy] [CONS] Routine Comment: Evaluate, develop and implement POC Reason for Consult: weakness return to [facility] Discharging clinician: Juan Mercedes Anticipated date of discharge: 04/28/17 - Patient Status Disposition: Transfer SNF Condition: Good Functional capacity at discharge: uses cane/walker Overall status at discharge: patient is progressing back to baseline - Discharge Instructions Follow Up With: NONE,PCP [Primary Care Provider] - Additional Instructions: Continue Levaquin for 5 more days Repeat CBC in 3 days Follow up with PCP in 3-4 days - Diet and Activity Activity: as per physical therapy, resume usual activities as tolerated Diet: low fat, low cholesterol, low salt diet Hospital course: Ms. Lobo is a 86 year old female - Time Spent with Patient Total time spent providing and/or coordinating discharge services: - Constitutional Vitals: Temp Pulse Resp BP Pulse Ox 98.5 F 116 16 103/76 95 04/28/17 07:00 04/28/17 07:00 04/28/17 07:00 04/28/17 07:00 04/28/17 07:00 General appearance: Present: cooperative, A&O X 3, morbidly obese, pleasant, no acute distress, answers questions appropriately - VTE Documentation of Mechanical Device: Intermittent pneumatic compression device
--- NOTE | 2017-04-28 10:00 | Physician Discharge Referral ---
<Juan Mercedes - Last Filed: 04/28/17 09:58> ExtendedCare Referral Info Transfer To: SNF/ ECF Provider in Charge: Monik Bellamy Provider in Charge after Transfer: PCP Institutional Level of Care: Skilled - Diagnosis (1) Pneumonia Priority: Primary Status: Acute (2) Diastolic CHF, acute on chronic Priority: Primary Status: Acute (3) Chronic hypoxemic respiratory failure Priority: Primary Status: Acute (4) Urinary tract infection Priority: Primary Status: Acute (5) Atrial fibrillation Priority: Primary Status: Acute (6) Supratherapeutic INR Priority: Primary Status: Resolved (7) Anemia Priority: Primary Status: Acute (8) Morbid obesity with BMI of 45.0-49.9, adult Priority: Secondary Status: Acute (9) DVT prophylaxis Priority: Primary Status: Acute Prognosis: Good Aware of Diagnosis: Patient, Family Aware of Prognosis: Patient, Family - Transfer Medications Prescriptions: Ferrous Sulfate 325 mg PO BIDWM #60 tablet Furosemide [Lasix] 40 mg PO DAILY #60 tablet GuaiFENesin/Dextromethorphan [Mucinex Dm] 1 each PO BID #20 tab.er.12h Ipratropium/Albuterol Neb [Duoneb] 3 ml IH Q6H PRN #30 inhsol PRN Reason: Shortness Of Breath/Wheezing Sennosides/Docusate Sodium [Senna Plus] 2 each PO BID PRN #60 tablet PRN Reason: Constipation Warfarin [Coumadin] 2 mg PO 1700 #7 tablet Home Medications: Aspirin Enteric Coated [Aspirin EC] 81 mg PO QAM 04/25/17 [History] Calcium Carbonate/Vitamin D3 [Calcium 500-Vit D3 200 Tablet] 1 each PO HS [History] Carvedilol [Coreg] 6.25 mg PO BIDWM 04/25/17 [History] HYDROcodone/Acet 5/325 mg [[place] 5-325 mg] 1 tab PO Q12H PRN 04/25/17 [History] Omeprazole [PriLOSEC] 20 mg PO QAM 04/25/17 [History] Simvastatin [Zocor] 40 mg PO QAM 04/25/17 [History] Venlafaxine XR (24 HR) [Effexor Xr] 37.5 mg PO QAM 04/25/17 [History] hydrOXYzine pamoate [HydrOXYzine Pamoate] 25 mg PO DAILY PRN 04/25/17 [History] Acetaminophen [Tylenol] 650 mg PO Q6HR PRN tablet 05/01/17 [Rx] Calcium Carbonate [Tums] 500 mg PO HS tab.chew 05/01/17 [Rx] Cholecalciferol (D-3) [Vitamin D] 1,000 unit PO HS tablet 05/01/17 [Rx] Ferrous Sulfate 325 mg PO BIDWM #60 tablet 05/01/17 [Rx] Furosemide [Lasix] 40 mg PO DAILY #60 tablet 05/01/17 [Rx] GuaiFENesin/Dextromethorphan [Mucinex Dm] 1 each PO BID #20 tab.er.12h 05/01/17 [Rx] Ipratropium/Albuterol Neb [Duoneb] 3 ml IH Q6H PRN #30 inhsol 05/01/17 [Rx] LORazepam [Ativan] 0.5 mg PO Q8HR PRN tablet 05/01/17 [Rx] Sennosides/Docusate Sodium [Senna Plus] 2 each PO BID PRN #60 tablet 05/01/17 [ Rx] Warfarin [Coumadin] 2 mg PO 1700 #7 tablet 05/01/17 [Rx] Allergies/Adverse Reactions: 3 Allergy/AdvReac Type Severity Reaction Status Date / Time sertraline [From Zoloft] AdvReac See Verified 04/25/17 16:35 Comments - Respiratory Orders Oxygen / L per min (3L) Smoking Cessation: Smoking cessation has been advised. For more information, call the [place] Tobacco Quit Line at 4-193-FWZU-NOW. - Lab Orders Lab Orders: CBC - Ancillary Orders May use pressure relief devices daily prn - Advance Directives Code Status: DNR-Arrest/Don't Intubate - Mobility Orders Ambulate (with assistance/ walker) - Rehabiliation Orders Rehab Potential: Good Rehab Orders: Evaluation for Physical Therapy, Evaluation for Occupational Therapy - Treatments May check for fecal impaction rectally daily PRN, Fleet enema rectally every other day PRN cleansing purposes - Diet Orders No Added Salt (JAIR), Cardiac CERTIFICATION: I certify that the transfer of the above named patient to an Extended Care Facility is necessary for the continuing treatment of the diagnosis listed. The above information is true and accurate reflection of patient's current condition. Confidential - Redisclosure prohibited without a patient's written consent. <JosesitoRosariolily - Last Filed: 05/01/17 17:18> - Diagnosis (1) CHF (congestive heart failure) Status: Acute (2) Pneumonia Status: Acute (3) Urinary tract infection Status: Acute (4) Anemia Status: Chronic (5) Atrial fibrillation Status: Chronic (6) DVT prophylaxis Status: Acute - Respiratory Orders Smoking Cessation: Smoking cessation has been advised. For more information, call the [place] Tobacco Quit Line at 0-905-ARQGNOW. CERTIFICATION: I certify that the transfer of the above named patient to an Extended Care Facility is necessary for the continuing treatment of the diagnosis listed. The above information is true and accurate reflection of patient's current condition. Confidential - Redisclosure prohibited without a patient's written consent.
--- NOTE | 2017-04-28 10:08 | Internal Med Progress Note ---
<Juan Mercedes - Last Filed: 04/28/17 10:06> Date of Encounter: 04/28/17 Time of Encounter: 08:10 - Assessment and plan (1) Pneumonia Current Visit: Yes Status: Acute Assessment and plan: Patient from [facility] rehab facility after recent hospitalization Chest x-ray with possible consolidation in the lingula. Blood cultures show no growth to date Sputum cukture only positive for < 100, 000 colony forming units of yeast, no treatment required HAP coverage Levaquin IV (Day 3 of 7), will need to complete 7 days total of Levaquin Continue incentive spirometry, Mucinex, and Duonebs Arrange SNF placement Qualifiers: Pneumonia type: due to unspecified organism Laterality: right Lung location: lower lobe of lung Qualified Code(s): J18.1 - Lobar pneumonia, unspecified organism (2) Diastolic CHF, acute on chronic Current Visit: Yes Status: Acute Assessment and plan: Elevated BNP 186, 2+ edema bilateral upper extremities, CXR with consolidation TTE 04/18/17 revealed 40-45% EF with global hypokinesis Continue Coreg Started Lasix Monitor I&Os Monitor for signs of fluid overload (3) Chronic hypoxemic respiratory failure Current Visit: Yes Status: Acute Assessment and plan: Continue 3 Liters supplemental home O2 at baseline requirement Switch to humidified oxygen (4) Urinary tract infection Current Visit: Yes Status: Acute Assessment and plan: Asymptomatic Urine culture positive for pansensitive E. coli De-escalted antibiotics, continue Levaquin Qualifiers: Urinary tract infection type: site unspecified Hematuria presence: without hematuria Qualified Code(s): N39.0 - Urinary tract infection, site not specified (5) Atrial fibrillation Current Visit: Yes Status: Acute Assessment and plan: Rate controlled Coreg 12.5 PO BID Resumed Coumadin Qualifiers: Atrial fibrillation type: chronic Qualified Code(s): I48.2 - Chronic atrial fibrillation (6) Supratherapeutic INR Current Visit: Yes Status: Resolved Assessment and plan: INR 8.8 --> 8.8 --> 1.4 --> 1.5 S/p Vitamin K 10mg No signs of bleeding Resumed Coumadin pharmacy to dose Continue to monitor (7) Anemia Current Visit: Yes Status: Acute Assessment and plan: History of anemia and prior EGD Obtain occult stool. Monitor H&H Anemia work up reveals iron deficiency anemia Start oral iron supplementation Qualifiers: Anemia type: unspecified type Qualified Code(s): D64.9 - Anemia, unspecified (8) Morbid obesity with BMI of 45.0-49.9, adult Current Visit: Yes Status: Acute Assessment and plan: Discussed diet modification and exercise (9) DVT prophylaxis Current Visit: Yes Status: Acute Assessment and plan: Ambulation, SCDs Resume Coumdin - Subjective Interval history: Patient seen and examined. Patient denies any acute complaints overnight. Daughter is at bedside and reports patient is not breathing well today. Patient denies fever, chills, CP, SOB, N/V/D, or leg edema. Patient encouraged to ambulate with PT/OT. All questions were answered at bedside. Will continue IV antibiotics and arrange SNF placement. - Constitutional Vitals: Temp Pulse Resp BP Pulse Ox 98.5 F 116 16 103/76 95 04/28/17 07:00 04/28/17 07:00 04/28/17 07:00 04/28/17 07:00 04/28/17 07:00 General appearance: Present: cooperative, A&O X 3, morbidly obese, pleasant, no acute distress, answers questions appropriately - Head Head exam: Present: atraumatic, normal inspection, normocephalic - Eye Eye exam: Present: EOMI, conjuntiva pink, sclera anicteric - ENT ENT exam: Present: mucous membranes moist, normal oropharynx - Expanded ENT Exam Teeth exam: Present: edentulous - Neck Neck exam general surgery: Present: normal inspection, supple - Respiratory Respiratory exam: Present: rales (L > R). Absent: accessory muscle use, respiratory distress - Cardiovascular Cardiovascular exam: Present: irregular rhythm, +S1, +S2. Absent: tachycardia - GI/Abdominal GI/Abdominal exam: Present: normal bowel sounds, soft. Absent: distended, guarding, tenderness - Additional comments: no back - Extremities Exam Extremities exam: Present: normal inspection, warm. Absent: pedal edema - Back Exam Back exam: Present: normal inspection. Absent: paraspinal tenderness, tenderness - Neurological Exam Neurological exam: Present: alert, oriented X3, no focal deficits. Absent: speech deficit - Psychiatric Psychiatric exam: Present: normal affect, normal mood - Skin Skin exam: Present: dry, normal color, warm Additional comments: ecchymosis improving right dorsal hand at venipuncture site Internal Medicine: Result - Labs CBC & Chem 7: 04/28/17 05:47 04/28/17 05:47 Labs: Short CBC 04/28/17 Range/Units 05:47 WBC 9.7 (4.3-11.1) K/mcL Hgb 7.5 L (11.5-15.4) g/dL Hct 27.2 L (35.3-44.9) % Plt Count 333 (140-400) K/mcL [facility] 04/28/17 05:47 Sodium 140 Potassium 4.5 Chloride 96 L Carbon Dioxide 40 H* BUN 30 H Creatinine 0.71 Glucose 118 H Calcium 9.6 - ABG Interpretation ABG results: PT/INR, D-dimer PT 16.7 Seconds (9.4-12.1) H 04/28/17 05:47 - Pulse Oximetry Interpretation Digit-Finger Pulse Oximetry Readin (on 3L via NC) - VTE Documentation of Mechanical Device: Intermittent pneumatic compression device Consult Discharge Plan - Plan Additional Instructions: Continue Levaquin for 5 more days Repeat CBC in 3 days Follow up with PCP in 3-4 days Referrals: NONE,PCP [Primary Care Provider] - <Monik Bellamy - Last Filed: 04/28/17 14:39> Date of Encounter: 04/28/17 - Constitutional Vitals: Temp Pulse Resp BP Pulse Ox 98.2 F 94 16 117/93 94 04/28/17 10:40 04/28/17 10:40 04/28/17 11:35 04/28/17 10:40 04/28/17 12:49 Internal Medicine: Result - Labs CBC & Chem 7: 04/28/17 05:47 04/28/17 05:47 Labs: Short CBC 04/28/17 Range/Units 05:47 WBC 9.7 (4.3-11.1) K/mcL Hgb 7.5 L (11.5-15.4) g/dL Hct 27.2 L (35.3-44.9) % Plt Count 333 (140-400) K/mcL [facility] 04/28/17 05:47 Sodium 140 Potassium 4.5 Chloride 96 L Carbon Dioxide 40 H* BUN 30 H Creatinine 0.71 Glucose 118 H Calcium 9.6 - ABG Interpretation ABG results: PT/INR, D-dimer PT 16.7 Seconds (9.4-12.1) H 04/28/17 05:47 - Attending Attestation I have seen and examined pt independently, I have discussed with Resident physician Dr Mercedes regarding the management plan. Agree with the documentation. Pt reported worsening cough and SOB today. When I saw her, she seems in no acute respiratory distress. Crackles on left lung base. O2 requirement is same with yesterday. Will cont iv levaquin. Add po lasix 20mg daily considering EF low and mild pedal edema (BNP 180s but pt is obesed). Cont closely monitor pt.
[2017-04-28] MEDS: Levofloxacin 750 MG/150 ML 750 MG/150 ML BAG IVPB SCH (10:29)
[2017-04-28] MEDS: Sennosides/Docusate Sodium TABLET PO SCH ×2 (10:33→20:00)
[2017-04-28] MEDS: Venlafaxine XR (24 HR) 37.5 MG CAP.ER.24H PO SCH (10:34)
[2017-04-28] MEDS: GuaiFENesin/Dextromethorphan TABLET PO SCH ×2 (10:34→20:00)
[2017-04-28] MEDS: Aspirin Enteric Coated 81 MG Tablet PO SCH (10:35)
[2017-04-28] MEDS: *HR* Acetylcysteine 20% 600 MG/3 ML ORAL SYRINGE PO SCH ×2 (12:11→20:00)
[2017-04-28] MEDS: *HR* HYDROcodone/Acet 5/325 mg TABLET PO PRN ×2 (12:40→20:01)
[2017-04-28] MEDS: Furosemide 20 MG TABLET PO SCH (16:41)
[2017-04-28] MEDS ORDERED: *HR* Warfarin 4 MG TABLET PO ONE (18:00)
[2017-04-28] MEDS: Cholecalciferol (D-3) 1,000 UNIT TABLET PO SCH (20:00)
[2017-04-29] MEDS: Ipratropium/Albuterol Neb 3 ML IH SCH ×4 (05:08→23:15)
[2017-04-29 05:53] LABS: Hemoglobin 7.6 g/dL (11.5-15.4)
[2017-04-29 05:54] LABS: Mean Corpuscular HGB Conc 28.1 g/dL (31.6-35.5); Mean Corpuscular Hemoglobin 25.6 pg (28.0-33.3); Mean Corpuscular Volume 90.9 fL (83.0-100.0); Mean Platelet Volume 9.4 fL (9.4-12.4); Platelet Count 354 K/mcL (140-400); Red Blood Count 2.97 M/mcL (3.82-4.97); Red Cell Distribution Width 18.2 % (11.5-14.5)
[2017-04-29 06:17] LABS: INR 2.8; Prothrombin Time 31.1 Seconds (9.4-12.1)
[2017-04-29 06:18] LABS: BUN/Creatinine Ratio 38 (6-26); Blood Urea Nitrogen 29 mg/dL (7-20); Calcium 9.2 mg/dL (8.6-10.8); Chloride 97 mEq/L (98-109); Glucose 111 mg/dL (70-99); Osmolality,Calculated 303 (280-300); Potassium 4.6 mEq/L (3.5-4.5); Sodium 143 mEq/L (136-145); eGFR For African Americans > 60 (> 60); eGFR For Non-African Americans > 60 (> 60)
[2017-04-29 06:21] LABS: Carbon Dioxide 40 mEq/L (19-29)
[2017-04-29] MEDS: Venlafaxine XR (24 HR) 37.5 MG CAP.ER.24H PO SCH (08:47)
[2017-04-29] MEDS: Sennosides/Docusate Sodium TABLET PO SCH ×2 (08:47→19:18)
[2017-04-29] MEDS: Aspirin Enteric Coated 81 MG Tablet PO SCH (08:47)
[2017-04-29] MEDS: Furosemide 20 MG TABLET PO SCH (08:47)
[2017-04-29] MEDS: GuaiFENesin/Dextromethorphan TABLET PO SCH ×2 (08:48→20:37)
[2017-04-29] MEDS: Levofloxacin 750 MG/150 ML 750 MG/150 ML BAG IVPB SCH (08:48)
[2017-04-29] MEDS ORDERED: Furosemide 20 MG/2 ML VIAL IVP ONE ×2 (10:37→17:32)
--- NOTE | 2017-04-29 14:31 | Internal Med Progress Note ---
Date of Encounter: 04/29/17 Time of Encounter: 09:00 - Assessment and plan (1) CHF (congestive heart failure) Current Visit: Yes Status: Acute Assessment and plan: TTE 04/18/17 from [facility] revealed 40-45% EF with global hypokinesis. - Place pt on lasix 20mg po daily, give extra 20mg iv today. - Cardiac diet. - Cont monitor fluid status. Qualifiers: Congestive heart failure type: combined Congestive heart failure chronicity : chronic Qualified Code(s): I50.42 - Chronic combined systolic (congestive) and diastolic (congestive) heart failure (2) Pneumonia Current Visit: Yes Status: Acute Assessment and plan: Patient from [facility] rehab facility after recent hospitalization Chest x-ray with possible consolidation in the lingula. Blood cultures show no growth to date Sputum cukture only positive for < 100, 000 colony forming units of yeast, no treatment required HAP coverage Levaquin IV (Day 4 of 7), will need to complete 7 days total of Levaquin Continue incentive spirometry, Mucinex, and Duonebs Arrange SNF placement Qualifiers: Pneumonia type: due to Pseudomonas Laterality: right Lung location: lower lobe of lung Qualified Code(s): J15.1 - Pneumonia due to Pseudomonas (3) Urinary tract infection Current Visit: Yes Status: Acute Assessment and plan: Asymptomatic Urine culture positive for pansensitive E. coli. De-escalted antibiotics, continue Levaquin Qualifiers: Urinary tract infection type: site unspecified Hematuria presence: without hematuria Qualified Code(s): N39.0 - Urinary tract infection, site not specified (4) Anemia Current Visit: Yes Status: Acute Assessment and plan: History of anemia and prior EGD Stable H/H at baseline Monitor H&H Anemia work up reveals iron deficiency anemia Start oral iron supplementation Qualifiers: Anemia type: unspecified type Qualified Code(s): D64.9 - Anemia, unspecified (5) Atrial fibrillation Current Visit: Yes Status: Acute Assessment and plan: Rate controlled Coreg 12.5 PO BID Resumed Coumadin, monitor PT/INR Qualifiers: Atrial fibrillation type: chronic Qualified Code(s): I48.2 - Chronic atrial fibrillation (6) DVT prophylaxis Current Visit: Yes Status: Acute Assessment and plan: Ambulation, SCDs Resume Coumdin - Time Spent With Patient 25 - 35 minutes - Subjective Interval history: Patient was seen and examined. Slightly improved cough. Denies shortness of breath. Patient has anxiety and was on ativan at home. Will place as needed low-dose ativan. Continue antibiotic treatment for pneumonia. - Constitutional Vitals: Temp Pulse Resp BP Pulse Ox 98.3 F 94 14 97/74 96 04/29/17 10:47 04/29/17 10:47 04/29/17 10:47 04/29/17 10:47 04/29/17 10:47 General appearance: Present: cooperative, A&O X 3, morbidly obese, pleasant, no acute distress, answers questions appropriately - Head Head exam: Present: atraumatic, normocephalic - Eye Eye exam: Present: PERRL, conjuntiva pink, sclera anicteric Pupils: Present: PERRL - Neck Neck exam general surgery: Present: supple, trachea midline. Absent: lymphadenopathy - Respiratory Respiratory exam: Present: CTAB, rales (Fine crackles on left lung base). Absent: accessory muscle use, rhonchi, wheezes - Cardiovascular Cardiovascular exam: Present: RRR, +S1, +S2. Absent: diastolic murmur, gallop, rubs, systolic murmur - GI/Abdominal GI/Abdominal exam: Present: normal bowel sounds, soft, no peritoneal signs. Absent: distended, tenderness - Extremities Exam Extremities exam: Present: pedal edema (Mild pedal edema b/l, improved compare with yesterday.), warm, radial pulses palpable and symmetrical. Absent: calf tenderness, cyanotic - Neurological Exam Neurological exam: Present: CN II-XII intact, oriented X3, no focal deficits. Absent: pronater drift, facial droop, speech deficit - Skin Skin exam: Present: dry, intact Internal Medicine: Result - Labs CBC & Chem 7: 04/29/17 05:22 04/29/17 05:22 Labs: Short CBC 04/29/17 Range/Units 05:22 WBC 9.1 (4.3-11.1) K/mcL Hgb 7.6 L (11.5-15.4) g/dL Hct 27.0 L (35.3-44.9) % Plt Count 354 (140-400) K/mcL BMP 04/29/17 05:22 Sodium 143 Potassium 4.6 H Chloride 97 L Carbon Dioxide 40 H* BUN 29 H Creatinine 0.77 Glucose 111 H Calcium 9.2 - ABG Interpretation ABG results: PT/INR, D-dimer PT 31.1 Seconds (9.4-12.1) H D 04/29/17 05:22 - VTE Documentation of Mechanical Device: Intermittent pneumatic compression device Consult Discharge Plan - Plan Additional Instructions: Continue Levaquin for 5 more days Repeat CBC in 3 days Follow up with PCP in 3-4 days Referrals: NONE,PCP [Primary Care Provider] -
[2017-04-29] MEDS: Cholecalciferol (D-3) 1,000 UNIT TABLET PO SCH (20:37)
[2017-04-29] MEDS: *HR* LORazepam 0.5 MG TABLET PO PRN (21:03)
[2017-04-30] MEDS: Ipratropium/Albuterol Neb 3 ML IH SCH ×4 (03:42→22:12)
[2017-04-30 06:10] LABS: Hematocrit 28.4 % (35.3-44.9); Red Cell Distribution Width 18.3 % (11.5-14.5)
[2017-04-30 06:11] LABS: INR 4.2
[2017-04-30 06:12] LABS: Basophils % 0.3 %; Eosinophils # 0.1 K/mcL (0.0-0.6); Eosinophils % 1.4 %; Hemoglobin 7.8 g/dL (11.5-15.4); Immature Granulocytes % 0.9 % (0-4); Lymphocytes # 1.5 K/mcL (0.6-4.6); Lymphocytes % 15.4 %; Mean Corpuscular HGB Conc 27.5 g/dL (31.6-35.5); Mean Platelet Volume 9.6 fL (9.4-12.4); Monocytes # 1.1 K/mcL (0.0-1.3); Platelet Count 361 K/mcL (140-400); Red Blood Count 3.12 M/mcL (3.82-4.97)
[2017-04-30 06:15] LABS: Prothrombin Time 46.5 Seconds (9.4-12.1)
[2017-04-30 06:26] LABS: BUN/Creatinine Ratio 36 (6-26); Blood Urea Nitrogen 27 mg/dL (7-20); Calcium 9.6 mg/dL (8.6-10.8); Chloride 94 mEq/L (98-109); Glucose 114 mg/dL (70-99); Osmolality,Calculated 298 (280-300); Platelet Estimate Normal (Normal); Potassium 4.1 mEq/L (3.5-4.5); Reactive Lymphocytes Present (Not Present); Sodium 141 mEq/L (136-145); eGFR For African Americans > 60 (> 60); eGFR For Non-African Americans > 60 (> 60)
[2017-04-30 06:27] LABS: Basophilic Stippling 1+ (Not Present); Hypochromasia Present (Not Present); Polychromasia 2+ (Not Present)
[2017-04-30 06:28] LABS: Carbon Dioxide 43 mEq/L (19-29)
[2017-04-30] MEDS: Venlafaxine XR (24 HR) 37.5 MG CAP.ER.24H PO SCH (08:51)
[2017-04-30] MEDS: GuaiFENesin/Dextromethorphan TABLET PO SCH ×2 (08:51→21:05)
[2017-04-30] MEDS: Aspirin Enteric Coated 81 MG Tablet PO SCH (08:51)
[2017-04-30] MEDS: Furosemide 20 MG TABLET PO SCH (08:52)
[2017-04-30] MEDS: Levofloxacin 750 MG/150 ML 750 MG/150 ML BAG IVPB SCH (08:52)
[2017-04-30] MEDS: Sennosides/Docusate Sodium TABLET PO SCH ×2 (08:52→21:08)
--- NOTE | 2017-04-30 11:38 | Internal Med Progress Note ---
Date of Encounter: 04/30/17 Time of Encounter: 09:00 - Assessment and plan (1) CHF (congestive heart failure) Current Visit: Yes Status: Acute Assessment and plan: TTE 04/18/17 from [facility] revealed 40-45% EF with global hypokinesis. - Increase lasix dose to 40mg po daily. Improved pedal edema on lasix. - Cardiac diet. - Cont monitor fluid status. Qualifiers: Congestive heart failure type: combined Congestive heart failure chronicity : chronic Qualified Code(s): I50.42 - Chronic combined systolic (congestive) and diastolic (congestive) heart failure (2) Pneumonia Current Visit: Yes Status: Acute Assessment and plan: Patient from [facility] rehab facility after recent hospitalization Chest x-ray with possible consolidation in the lingula. Blood cultures show no growth to date Sputum cukture only positive for < 100, 000 colony forming units of yeast, no treatment required HAP coverage Levaquin IV (Day 4 of 7), will need to complete 7 days total of Levaquin Continue incentive spirometry, Mucinex, and Duonebs Arrange SNF placement Qualifiers: Pneumonia type: due to Pseudomonas Laterality: right Lung location: lower lobe of lung Qualified Code(s): J15.1 - Pneumonia due to Pseudomonas (3) Urinary tract infection Current Visit: Yes Status: Acute Assessment and plan: Asymptomatic Urine culture positive for pansensitive E. coli. De-escalted antibiotics, continue Levaquin Qualifiers: Urinary tract infection type: site unspecified Hematuria presence: without hematuria Qualified Code(s): N39.0 - Urinary tract infection, site not specified (4) Anemia Current Visit: Yes Status: Acute Assessment and plan: History of anemia and prior EGD Stable H/H at baseline Monitor H&H Anemia work up reveals iron deficiency anemia Start oral iron supplementation Qualifiers: Anemia type: iron deficiency Iron deficiency anemia type: chronic blood loss Qualified Code(s): D50.0 - Iron deficiency anemia secondary to blood loss (chronic) (5) Atrial fibrillation Current Visit: Yes Status: Acute Assessment and plan: Rate controlled Coreg 12.5 PO BID Resumed Coumadin, monitor PT/INR Qualifiers: Atrial fibrillation type: chronic Qualified Code(s): I48.2 - Chronic atrial fibrillation (6) DVT prophylaxis Current Visit: Yes Status: Acute Assessment and plan: Ambulation, SCDs Resume Coumdin - Time Spent With Patient 25 - 35 minutes - Subjective Interval history: Patient was seen and examined. Cough has improved. States "feels fine". Denies shortness of breath. Patient has anxiety and was on ativan at home. Will place as needed low-dose ativan. Continue antibiotic treatment for pneumonia. - Constitutional Vitals: Temp Pulse Resp BP Pulse Ox 97.9 F 79 12 108/61 94 04/30/17 10:32 04/30/17 10:32 04/30/17 10:32 04/30/17 10:32 04/30/17 10:32 General appearance: Present: cooperative, A&O X 3, morbidly obese, pleasant, no acute distress, answers questions appropriately - Head Head exam: Present: atraumatic, normocephalic - Eye Eye exam: Present: PERRL, conjuntiva pink, sclera anicteric Pupils: Present: PERRL - Neck Neck exam general surgery: Present: supple, trachea midline. Absent: lymphadenopathy - Respiratory Respiratory exam: Present: CTAB. Absent: accessory muscle use, rales, rhonchi, wheezes - Cardiovascular Cardiovascular exam: Present: RRR, +S1, +S2. Absent: diastolic murmur, gallop, rubs, systolic murmur - GI/Abdominal GI/Abdominal exam: Present: normal bowel sounds, soft, no peritoneal signs. Absent: distended, tenderness - Extremities Exam Extremities exam: Present: warm, radial pulses palpable and symmetrical. Absent : calf tenderness, cyanotic, pedal edema - Neurological Exam Neurological exam: Present: CN II-XII intact, oriented X3, no focal deficits. Absent: pronater drift, facial droop, speech deficit - Skin Skin exam: Present: dry, intact Internal Medicine: Result - Labs CBC & Chem 7: 04/30/17 05:30 04/30/17 05:30 Labs: Short CBC 04/30/17 Range/Units 05:30 WBC 9.8 (4.3-11.1) K/mcL Hgb 7.8 L (11.5-15.4) g/dL Hct 28.4 L (35.3-44.9) % Plt Count 361 (140-400) K/mcL Neutrophils # 7.0 (1.6-8.9) K/mcL BMP 04/30/17 05:30 Sodium 141 Potassium 4.1 Chloride 94 L Carbon Dioxide 43 H* BUN 27 H Creatinine 0.76 Glucose 114 H Calcium 9.6 - ABG Interpretation ABG results: PT/INR, D-dimer PT 46.5 Seconds (9.4-12.1) H* 04/30/17 05:30 - VTE Documentation of Mechanical Device: Intermittent pneumatic compression device Consult Discharge Plan - Plan Additional Instructions: Continue Levaquin for 5 more days Repeat CBC in 3 days Follow up with PCP in 3-4 days Referrals: NONE,PCP [Primary Care Provider] -
[2017-04-30] MEDS: Cholecalciferol (D-3) 1,000 UNIT TABLET PO SCH (21:05)
[2017-04-30] MEDS: *HR* LORazepam 0.5 MG TABLET PO PRN (21:05)
[2017-05-01] MEDS: Ipratropium/Albuterol Neb 3 ML IH SCH ×2 (04:25→10:57)
[2017-05-01 07:03] VITALS: BP 123/82
[2017-05-01 07:06] LABS: INR 3.9
[2017-05-01 07:10] LABS: BUN/Creatinine Ratio 36 (6-26); Blood Urea Nitrogen 28 mg/dL (7-20); Calcium 9.6 mg/dL (8.6-10.8); Chloride 91 mEq/L (98-109); Glucose 113 mg/dL (70-99); Osmolality,Calculated 298 (280-300); Sodium 141 mEq/L (136-145); eGFR For African Americans > 60 (> 60); eGFR For Non-African Americans > 60 (> 60)
[2017-05-01 07:11] LABS: Prothrombin Time 43.5 Seconds (9.4-12.1)
[2017-05-01 07:12] LABS: Carbon Dioxide 47 mEq/L (19-29)
[2017-05-01 08:08] LABS: Mean Corpuscular Hemoglobin 25.7 pg (28.0-33.3); Mean Platelet Volume 9.6 fL (9.4-12.4)
[2017-05-01 08:10] LABS: Hematocrit 26.6 % (35.3-44.9); Hemoglobin 7.5 g/dL (11.5-15.4); Mean Corpuscular HGB Conc 28.2 g/dL (31.6-35.5); Mean Corpuscular Volume 91.1 fL (83.0-100.0); Platelet Count 341 K/mcL (140-400); Red Blood Count 2.92 M/mcL (3.82-4.97); Red Cell Distribution Width 18.2 % (11.5-14.5)
[2017-05-01] MEDS: Sennosides/Docusate Sodium TABLET PO SCH (08:47)
[2017-05-01] MEDS: Aspirin Enteric Coated 81 MG Tablet PO SCH (08:48)
[2017-05-01] MEDS: Furosemide 20 MG TABLET PO SCH (08:48)
[2017-05-01] MEDS: GuaiFENesin/Dextromethorphan TABLET PO SCH (08:48)
[2017-05-01] MEDS: Venlafaxine XR (24 HR) 37.5 MG CAP.ER.24H PO SCH (08:48)
[2017-05-01] MEDS: Levofloxacin 750 MG/150 ML 750 MG/150 ML BAG IVPB SCH (08:49)
--- NOTE | 2017-05-01 10:30 | Discharge Summary ---
<Juan Mercedes - Last Filed: 05/01/17 16:57> Date of Encounter: 05/01/17 Time of Encounter: 08:10 - Discharge Diagnosis (1) Pneumonia Priority: Primary Status: Acute Comments: Patient from [facility] rehab facility after recent hospitalization Chest x-ray with possible consolidation in the lingula. Blood cultures show no growth to date Sputum cukture only positive for < 100, 000 colony forming units of yeast, no treatment required HAP coverage Levaquin IV (Day 7 of 7), completed 7 days total of Levaquin treatment Continue incentive spirometry, Mucinex, and Duonebs Anticipate SNF placement Qualifiers: Pneumonia type: due to Pseudomonas Laterality: right Lung location: lower lobe of lung Qualified Code(s): J15.1 - Pneumonia due to Pseudomonas (2) Diastolic CHF, acute on chronic Priority: Primary Status: Acute Comments: TTE 04/18/17 from [facility] revealed 40-45% EF with global hypokinesis. Lasix dose to 40mg po daily. Improved pedal edema on lasix. Cardiac diet. Fluid restriction Cont monitor fluid status. (3) Chronic hypoxemic respiratory failure Priority: Primary Status: Acute Comments: Acute on Chronic. Respiratory distress due to CHF exacerbation Continue 3 Liters supplemental home O2 at baseline requirement (4) Urinary tract infection Priority: Primary Status: Acute Comments: Asymptomatic Urine culture positive for pansensitive E. coli. De-escalted antibiotics, completed 7 days of Levaquin Qualifiers: Urinary tract infection type: site unspecified Hematuria presence: without hematuria Qualified Code(s): N39.0 - Urinary tract infection, site not specified (5) Atrial fibrillation Priority: Primary Status: Chronic Comments: Rate controlled Coreg 12.5 PO BID Resumed Coumadin, PCP to monitor PT/INR upon discharge Qualifiers: Atrial fibrillation type: chronic Qualified Code(s): I48.2 - Chronic atrial fibrillation (6) Supratherapeutic INR Priority: Primary Status: Resolved Comments: Coumadin held for 2 days Resume Coumadin tonight, PCP to monitor PT/INR (7) Anemia Priority: Primary Status: Chronic Comments: History of anemia and prior EGD Stable H/H at baseline Monitor H&H Anemia work up reveals iron deficiency anemia Continue oral iron supplementation for 3-6 months, PCP to follow Qualifiers: Anemia type: iron deficiency Iron deficiency anemia type: chronic blood loss Qualified Code(s): D50.0 - Iron deficiency anemia secondary to blood loss (chronic) (8) Morbid obesity with BMI of 45.0-49.9, adult Priority: Secondary Status: Acute Comments: Discussed diet modification and exercise (9) DVT prophylaxis Priority: Primary Status: Acute Comments: Ambulation, SCDs Resume Coumdin - Discharge Medications Prescriptions: Ferrous Sulfate 325 mg PO BIDWM #60 tablet Furosemide [Lasix] 40 mg PO DAILY #60 tablet GuaiFENesin/Dextromethorphan [Mucinex Dm] 1 each PO BID #20 tab.er.12h Ipratropium/Albuterol Neb [Duoneb] 3 ml IH Q6H PRN #30 inhsol PRN Reason: Shortness Of Breath/Wheezing Sennosides/Docusate Sodium [Senna Plus] 2 each PO BID PRN #60 tablet PRN Reason: Constipation Warfarin [Coumadin] 2 mg PO 1700 #7 tablet Home Medications: Aspirin Enteric Coated [Aspirin EC] 81 mg PO QAM 04/25/17 [History] Calcium Carbonate/Vitamin D3 [Calcium 500-Vit D3 200 Tablet] 1 each PO HS [History] Carvedilol [Coreg] 6.25 mg PO BIDWM 04/25/17 [History] HYDROcodone/Acet 5/325 mg [[place] 5-325 mg] 1 tab PO Q12H PRN 04/25/17 [History] Omeprazole [PriLOSEC] 20 mg PO QAM 04/25/17 [History] Simvastatin [Zocor] 40 mg PO QAM 04/25/17 [History] Venlafaxine XR (24 HR) [Effexor Xr] 37.5 mg PO QAM 04/25/17 [History] hydrOXYzine pamoate [HydrOXYzine Pamoate] 25 mg PO DAILY PRN 04/25/17 [History] Acetaminophen [Tylenol] 650 mg PO Q6HR PRN tablet 05/01/17 [Rx] Calcium Carbonate [Tums] 500 mg PO HS tab.chew 05/01/17 [Rx] Cholecalciferol (D-3) [Vitamin D] 1,000 unit PO HS tablet 05/01/17 [Rx] Ferrous Sulfate 325 mg PO BIDWM #60 tablet 05/01/17 [Rx] Furosemide [Lasix] 40 mg PO DAILY #60 tablet 05/01/17 [Rx] GuaiFENesin/Dextromethorphan [Mucinex Dm] 1 each PO BID #20 tab.er.12h 05/01/17 [Rx] Ipratropium/Albuterol Neb [Duoneb] 3 ml IH Q6H PRN #30 inhsol 05/01/17 [Rx] LORazepam [Ativan] 0.5 mg PO Q8HR PRN tablet 05/01/17 [Rx] Sennosides/Docusate Sodium [Senna Plus] 2 each PO BID PRN #60 tablet 05/01/17 [ Rx] Warfarin [Coumadin] 2 mg PO 1700 #7 tablet 05/01/17 [Rx] Allergies/Adverse Reactions: 3 Allergy/AdvReac Type Severity Reaction Status Date / Time sertraline [From Zoloft] AdvReac See Verified 04/25/17 16:35 Comments Date of admission: 04/25/17 23:24 Primary care physician: PCP NONE Consults: 04/26/17 10:53 Consult to Physical Therapy [CONS] Routine Comment: Evaluate, develop and implement POC Reason for Consult: weakness return to [facility] OT [Consult to Occupational Therapy] [CONS] Routine Comment: Evaluate, develop and implement POC Reason for Consult: weakness return to [facility] Discharging clinician: Juan Mercedes Anticipated date of discharge: 05/01/17 - Patient Status Disposition: Transfer SNF Condition: Good Overall status at discharge: patient is progressing back to baseline - Ambulatory Orders Ambulatory Orders: Complete Blood Count w/o Diff [HEME] Time Frame: 05/03/17, Location: N/A Prothrombin Time INR [COAG] Time Frame: 05/03/17, Location: N/A - Discharge Instructions Instructions: Warfarin (By mouth), Heart Failure (DC), Pneumonia (DC) Follow Up With: NONE,PCP [Primary Care Provider] - Additional Instructions: Repeat labs CBC and INR level on 05/03/17 Follow up with PCP regarding Coumadin dose Continue Lasix and fluid restricted diet < 1.5 Liters / daily - Diet and Activity Activity: as per physical therapy, increase activity as tolerated, resume usual activities as tolerated, wear oxygen at all times Diet: low fat, low cholesterol (fluid restricted diet 1,500cc/ daily) Hospital course: Ms. Lobo is a 86 year old female with a past medical history of atrial fibrillation on Coumadin, CHF, hypertension, and hyperlipidemia that presented form a rehab facility due to worsening weakness as well as shortness of breath on exertion for several days. Lab work revealed elevated BNP, hemoglobin is 8.4 , INR of 8.8, Coumadin was held, and Vitamin K 10mg was given. Chest x-ray revealed possible consolidation in the lingula and patient was started on empiric HAP coverage with IV vancomycin, Zosyn and Levaquin. Urinalysis revealed UTI and urine culture was positive for butts-sensitive E. coli. Antibiotics were de-escalted and patient completed 7 days of Levaquin IV during hospital stay. Anemia work up revealed iron deficiency anemia and she was started oral iron supplementation. Her A- fib was rate controlled on Coreg 12.5 PO BID. Patient was discharged to rehab with an order for repeat labs CBC and INR level on 05/03/17. Patient instructed to follow up with PCP regarding Coumadin dose. Continue Lasix and fluid restricted diet < 1.5 Liters / daily. - Time Spent with Patient Total time spent providing and/or coordinating discharge services: - Constitutional Vitals: Temp Pulse Resp BP Pulse Ox 98.6 F 106 17 123/82 97 05/01/17 07:00 05/01/17 07:00 05/01/17 07:00 05/01/17 07:00 05/01/17 07:00 General appearance: Present: cooperative, A&O X 3, morbidly obese, pleasant, no acute distress, answers questions appropriately Exam: - Head Head exam: Present: atraumatic, normal inspection, normocephalic - Eye Eye exam: Present: EOMI, conjuntiva pink, sclera anicteric - ENT ENT exam: Present: mucous membranes moist, normal oropharynx - Expanded ENT Exam Teeth exam: Present: edentulous - Neck Neck exam general surgery: Present: normal inspection, supple - Respiratory Respiratory exam: Present: decreased bibasilar breath sounds (L > R). Absent: accessory muscle use, respiratory distress - Cardiovascular Cardiovascular exam: Present: irregular rhythm, +S1, +S2. Absent: tachycardia - GI/Abdominal GI/Abdominal exam: Present: normal bowel sounds, soft. Absent: distended, guarding, tenderness - Additional comments: no back - Extremities Exam Extremities exam: Present: normal inspection, warm. Absent: pedal edema - Back Exam Back exam: Present: normal inspection. Absent: paraspinal tenderness, tenderness - Neurological Exam Neurological exam: Present: alert, oriented X3, no focal deficits. Absent: speech deficit - Psychiatric Psychiatric exam: Present: normal affect, normal mood - Skin Skin exam: Present: dry, normal color, warm Additional comments: ecchymosis improving right dorsal hand at venipuncture site - VTE Documentation of Mechanical Device: Intermittent pneumatic compression device <Monik Bellamy - Last Filed: 05/01/17 17:29> Date of Encounter: 05/01/17 - Discharge Diagnosis (1) CHF (congestive heart failure) Status: Acute Qualifiers: Congestive heart failure type: combined Congestive heart failure chronicity : chronic Qualified Code(s): I50.42 - Chronic combined systolic (congestive) and diastolic (congestive) heart failure (2) Pneumonia Status: Acute Qualifiers: Pneumonia type: due to Pseudomonas Laterality: right Lung location: lower lobe of lung Qualified Code(s): J15.1 - Pneumonia due to Pseudomonas (3) Urinary tract infection Status: Acute Qualifiers: Urinary tract infection type: site unspecified Hematuria presence: without hematuria Qualified Code(s): N39.0 - Urinary tract infection, site not specified (4) Anemia Status: Chronic Qualifiers: Anemia type: iron deficiency Iron deficiency anemia type: chronic blood loss Qualified Code(s): D50.0 - Iron deficiency anemia secondary to blood loss (chronic) (5) Atrial fibrillation Status: Chronic Qualifiers: Atrial fibrillation type: chronic Qualified Code(s): I48.2 - Chronic atrial fibrillation (6) DVT prophylaxis Status: Acute Date of admission: 04/25/17 23:24 Primary care physician: PCP NONE Consults: 04/26/17 10:53 Consult to Physical Therapy [CONS] Routine Comment: Evaluate, develop and implement POC Reason for Consult: weakness return to [facility] OT [Consult to Occupational Therapy] [CONS] Routine Comment: Evaluate, develop and implement POC Reason for Consult: weakness return to ecf Hospital course: Ms. Lobo is a 86 year old female - Time Spent with Patient Total time spent providing and/or coordinating discharge services: - Constitutional Vitals: Temp Pulse Resp BP Pulse Ox 98.6 F 106 16 123/82 96 05/01/17 07:00 05/01/17 07:00 05/01/17 10:57 05/01/17 07:00 05/01/17 10:57 - Attending Attestation I have seen and examined pt independently. I have discussed with resident physician Dr Mercedes regarding the management plan. Agree with the documentation. Pt has less SOB. No cough. Still weak. Finished abx course. Will D/c to SNF today. Please closely monitor PT/INR as pt is very sensitive to coumadin.
== END 2017-05-01 15:39 | DRG 177 ==
LOC: 2NENU 11:40 → EMEROO 11:40 → 2NENU 19:51
PROVIDERS: ADMIT Internal Medicine; ATTEND Internal Medicine